=== PATIENT | female | born 1960 | race African-American/Black ===

== ENCOUNTER 2017-11-30 19:47 | Emergency (ER) | payer MEDICAID ==
[~2017-11-30] VITALS: Ht 167.6 cm; Wt 93.0 kg
[~2017-11-30 19:47] MED LIST: FURO-152; LISI-604; METF500T3
[2017-11-30] MEDS ORDERED: ONDANSETRON HCL 4MG/2ML VIAL IV STA (23:37)
[2017-11-30 23:54] LABS: EOSINOPHILS % 7.6 % (0.0-5.0); HEMATOCRIT. 34.5 % (36.0-48.0); HEMOGLOBIN. 11.1 g/dL (12.0-16.0); LYMPHOCYTES % 38.9 % (20.0-50.0); MEAN CORPUSCULAR HEMOGLOBIN 24.3 pg (28.0-32.0); MEAN CORPUSCULAR VOLUME 75.3 fL (81.0-99.0); MEAN PLATELET VOLUME 9.2 fl (7.4-10.4); MONOCYTES % 5.9 % (2.0-8.0); NEUTROPHILS % 46.6 % (40.0-76.0); PLATELET 326 x1000/uL (130-400); RED BLOOD CELL COUNT 4.57 mill/uL (4.2-5.4); RED CELL DISTRIBUTION WIDTH 16.6 % (11.6-14.6)
[2017-12-01 00:01] LABS: CHLORIDE 103 mEq/L (98-107)
[2017-12-01 00:25] LABS: PARTIAL THROMBOPLASTIN TIME 27.5 sec (23.4-31.0); PROTHROMBIN TIME 10.3 sec (9.4-11.6)
[2017-12-01] MEDS ORDERED: TRAMADOL 50MG TABLET PO ONE (02:15)
[2017-12-01 04:47] VITALS: BP 152/81
== END 2017-12-01 04:52 | disposition home or self-care (01) ==
LOC: ER 21:00
DX: E11.65 Type 2 diabetes mellitus with hyperglycemia (principal); I10 Essential (primary) hypertension; Z86.73 Personal history of transient ischemic attack (TIA), and cerebral infarction without residual deficits
CPT/HCPCS: 36415; 71045; 80053; 83690; 84484; 85025; 85610; 85730; 93005; 96374; 99285; J2405; Z7610

== ENCOUNTER 2023-11-22 17:53 | Inpatient (IN) | payer MEDICAID, OTHER ==
[~2023-11-22] VITALS: Ht 170.2 cm; Wt 78.0 kg
[~2023-11-22 17:53] MED LIST changes: +AMLO5TAB88 PO; +AMOX1TAB16 MT; +ASPI-1406 PO; +ATOR20TA65 PO; +BIMA2.5D4 EACHEYE; +BRIN8DRO2 EACHEYE; -FURO-152; +HYDR-4009 MT; +INSU100I24 SUBCUT; -LISI-604; +METF-416 PO; -METF500T3; +METO-385 PO; +NETA2.5D EACHEYE; +OLAN5TAB74 PO; +QUET50TA23 PO
[2023-11-22] MEDS ORDERED: LACTATED RINGERS 1,000 ML IV SCH ×2 (18:40→18:45)
[2023-11-22 18:48] LABS: BASOPHILS % 0.5 % (0.0-2.0); EOSINOPHILS % 8.6 % (0.0-5.0); HEMATOCRIT. 34.5 % (36.0-48.0); HEMOGLOBIN. 11.4 g/dL (12.0-16.0); LYMPHOCYTES % 39.4 % (20.0-50.0); MEAN CORPUSCULAR HEMOGLOBIN 27.6 pg (28.0-32.0); MEAN CORPUSCULAR HGB CONC 32.9 g/dL (31.0-37.0); MEAN CORPUSCULAR VOLUME 83.8 fL (81.0-99.0); MONOCYTES % 5.6 % (2.0-8.0); NEUTROPHILS % 45.9 % (40.0-76.0); PLATELET 365 x1000/uL (130-400); RED BLOOD CELL COUNT 4.12 mill/uL (4.2-5.4); RED CELL DISTRIBUTION WIDTH 16.5 % (11.6-14.6); WHITE BLOOD COUNT 9.9 x1000/uL (4.5-11.0)
[2023-11-22 18:51] LABS: CHLORIDE 108 mEq/L (98-107); POTASSIUM 3.5 mEq/L (3.5-5.1); SODIUM 141 mEq/L (136-145)
[2023-11-22 18:52] LABS: CALCIUM 9.6 mg/dL (8.7-10.4); CARBON DIOXIDE 27 mEq/L (21-32)
[2023-11-22 18:57] LABS: GLUCOSE 215 mg/dL (70-105); INR 0.9; PROTHROMBIN TIME 10.3 sec (9.6-11.0); TROPONIN I HIGH SENSITIVITY 9 ng/L (3.0-34); UREA NITROGEN BLOOD 13 mg/dL (9-23)
[2023-11-22 18:59] LABS: ALANINE AMINOTRANSFERASE 12 IU/L (10-49); ALBUMIN 4.1 g/dL (3.2-4.8); ASPARTATE AMINOTRANSFERASE 18 IU/L (<34)
[2023-11-22 19:00] LABS: BILIRUBIN TOTAL 0.2 mg/dL (0.1-1.0)
[2023-11-22 19:10] LABS: BILIRUBIN DIRECT < 0.1 mg/dL (<=3.0)
[2023-11-22 19:23] LABS: BETA HYDROXYBUTYRATE 0.1 mMol/L (0.0-0.3)
[2023-11-22] MEDS: MORPHINE SULFATE 4 MG/ML INJ (FOR IV/IM USE) IM ONE (21:58)
[2023-11-23] MEDS: HYDRALAZINE 20MG/ML VIAL IV PRN (03:16)
[2023-11-23 08:00] VITALS: BP 181/88; PULSE 52; RESP 18; TEMP 98.3
[2023-11-23] MEDS ORDERED: DEXTROSE 50% WATER 50ML SYRINGE IV PRN (10:15)
[2023-11-23] MEDS: METOPROLOL SUCCINATE 50MG ER TABLET PO SCH (10:30)
[2023-11-23] MEDS ORDERED: IPRATROPIUM/ALBUTEROL 0.5-3(2.5)MG/3ML NEB HHN PRN (10:30)
[2023-11-23] MEDS ORDERED: ONDANSETRON HCL 4MG/2ML INJ IV PRN (10:30)
[2023-11-23] MEDS ORDERED: ACETAMINOPHEN 325MG TABLET PO PRN (10:30)
[2023-11-23] MEDS: AMLODIPINE 5MG TABLET PO SCH (11:26)
[2023-11-23] MEDS: ACETAMINOPHEN 325MG TABLET PO PRN (11:26)
[2023-11-23] MEDS: AMOXICILLIN/POTASSIUM CLAVULANATE 875/125MG TAB PO SCH (11:26)
[2023-11-23] MEDS: ASPIRIN 81MG EC TABLET PO SCH (11:26)
[2023-11-23] MEDS: INSULIN LISPRO 100 UNITS/ML SUBCUT SCH (11:34)
[2023-11-23 12:00] VITALS: BP_SYST 151; BP_SYST 192; BP_DIAS 85; BP_DIAS 95; PULSE 95; RESP 18; TEMP 97.7
[2023-11-23] MEDS: BLOOD SUGAR DIAGNOSTIC STRIP TEST SCH (12:38)
[2023-11-23] MEDS: DOCUSATE SODIUM 100MG CAPSULE PO PRN (13:53)
[2023-11-23 16:00] VITALS: BP_SYST 148; BP_SYST 151; BP_DIAS 67; PULSE 74; RESP 18; TEMP 97.7
[2023-11-23 20:00] VITALS: BP_SYST 128; BP_SYST 163; BP_DIAS 81; BP_DIAS 87; PULSE 73; RESP 18; TEMP 98.5
[2023-11-23] MEDS: QUETIAPINE FUMARATE 50MG TABLET PO SCH (20:18)
[2023-11-23] MEDS: OLANZAPINE 5MG TABLET PO SCH (20:18)
[2023-11-23] MEDS: ATORVASTATIN CALCIUM 20MG TABLET PO SCH (20:18)
[2023-11-24] VITALS: BP 130/63; PULSE 65; RESP 18; TEMP 97.5
[2023-11-24 04:00] VITALS: BP 132/75; PULSE 64; RESP 18; TEMP 97.9
[2023-11-24 08:00] VITALS: BP 156/67; PULSE 57; RESP 19; TEMP 98
[2023-11-24 12:00] VITALS: BP 143/74; PULSE 89; RESP 16; TEMP 97.8
[2023-11-24 16:00] VITALS: BP 163/77; PULSE 61; RESP 20; TEMP 97.7
[2023-11-24 16:49] VITALS: BP 134/65; PULSE 68; TEMP 97.7; O2SAT 96
[2023-12-02] MEDS ORDERED: LEVO-65 MT (12:23)
== END 2023-11-24 17:41 | disposition home health service (06) | DRG 199 ==
LOC: ER 17:53 → 5WST 21:34 → EDBEDREQSVC 21:38 → EDBEDREQ 21:38 → EDBEDREQTM 21:38 → EDBEDREQ 22:28 → 7EST 11-23 09:02
PROVIDERS: ADMIT Internal Medicine; ATTEND Internal Medicine
DX: I16.0 Hypertensive urgency (principal); I69.354 Hemiplegia and hemiparesis following cerebral infarction affecting left non-dominant side; E11.65 Type 2 diabetes mellitus with hyperglycemia; D64.9 Anemia, unspecified; J45.909 Unspecified asthma, uncomplicated; J32.9 Chronic sinusitis, unspecified; I10 Essential (primary) hypertension; R29.6 Repeated falls; Z99.3 Dependence on wheelchair; Z79.84 Long term (current) use of oral hypoglycemic drugs
CPT/HCPCS: 36415; 71045; 80048; 80076; 82010; 82962; 83036; 83605; 83735; 83930; 84145; 84439; 84443; 84484; 85025; 93005; 93970; 99285; J0360; J1815; J2270